=== PATIENT | female | born 1945 | race Two or more races ===

== ENCOUNTER 2016-10-10 13:51 | Outpatient (CLI) | payer MEDICARE, MEDICAID ==
--- NOTE | 2016-10-10 15:02 | Diagnostic Imaging Report ---
Indications: Chest pain and shortness of breath Technique: Continuous helical CT imaging of the thorax was performed with automatic exposure control on a Siemens sensation [address] scanner. Axial, coronal, sagittal images were reconstructed at 5 mm slice thickness. Thin section high-resolution axial images were reconstructed at 1 mm slice thickness and 10 mm interval. CTDI volume(s): 25 mGy Total DLP: 826 mGy-cm Findings: Comparison: None Lungs are normally, symmetrically inflated. Small irregular pleural-based linear densities are present in the dependent portions of both lung bases. 2 mm noncalcified nodule anterior segment left upper lobe (5-19). 2 mm noncalcified nodule anterior segment left upper lobe (5-22). 3 mm noncalcified nodule lateral segment right middle lobe and 3 mm noncalcified nodule anterior basal segment right lower lobe (5-31). 3 mm noncalcified nodule lateral basal segment left lower lobe (5-39). No significant emphysematous change, interlobular septal thickening, groundglass opacity, partly wall thickening, traction bronchiectasis, or honeycombing. No significant pleural abnormality. Heart enlarged. No pericardial abnormality. Scattered arterial mural calcifications including coronary artery involvement. Vascular patency indeterminate. Thoracic aorta nonaneurysmal. No enlarged mediastinal or hilar lymph nodes detected. Chest wall soft tissues nonfocal. Multiple small calcified nodules in liver and spleen. 3 cm circumscribed low-attenuation focus in hepatic segment 4A. Disc marginal osteophytes lower thoracic spine. IMPRESSION: No evidence of significant pulmonary interstitial disease Minimal pulmonary bibasal subsegmental atelectasis Bilateral small noncalcified lung nodules--favor granulomatous disease over metastases, latter not entirely excludable. The patient is at high risk for neoplasm, recommend followup CT scan in 12 months; no followup recommended if low risk. 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
== END 2016-10-10 14:21 | disposition home or self-care (01) ==
LOC: CAT 13:51
DX: R07.9 Chest pain, unspecified (principal); I51.7 Cardiomegaly; J98.11 Atelectasis; R91.1 Solitary pulmonary nodule; I70.90 Unspecified atherosclerosis; D71 Functional disorders of polymorphonuclear neutrophils; K76.89 Other specified diseases of liver; M47.9 Spondylosis, unspecified
CPT/HCPCS: 71250

== ENCOUNTER 2016-10-28 12:23 | Outpatient (CLI) | payer MEDICARE, MEDICAID ==
--- NOTE | 2016-10-28 14:14 | Diagnostic Imaging Report ---
Clinical Indication: COUGH left-sided chest pain x3 weeks Technique: Spiral acquisitions obtained through the chest. No IV contrast utilized, reason not stated. Multiplanar reconstructions generated. Total dose length product 898 mGycm. CTDIvol(s) 23 mGy. 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 The bones are otherwise unremarkable 2 nodules are seen the periphery of the right middle lobe, image 30 of series 4, the more ill-defined posterior nodule measuring approximately 5 mm in diameter, more anterior measuring approximately 3 mm diameter. These are unchanged. Some medial scarring in the left lung base is unchanged. A subpleural nodule in the left upper lobe periphery, image 22 series 4, remains unchanged as there is a similar nodule at the left posterior lateral lung base image 36 series 4. These measure about 3 mm in diameter. No infiltrates, effusions, congestion. No new nodules. No mediastinal or hilar mass or adenopathy. The heart size is normal. No pericardial effusion. No axillary or chest wall mass or adenopathy. Unremarkable esophagus. Again are multiple calcifications within the liver. Again demonstrated is a right lobe hepatic cyst which measures 2.7 cm in diameter. Again demonstrated is a splenic capsular calcification. Impression: No acute abnormality Multiple small nodules bilaterally, unchanged. If patient is at low risk for lung carcinoma, no further followup necessary. If patient is at high risk, one year followup CT should be considered to ensure stability over 2 year. 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
== END 2016-10-28 14:23 | disposition home or self-care (01) ==
LOC: CAT 12:23
DX: R05 Cough (principal); R07.9 Chest pain, unspecified; R91.8 Other nonspecific abnormal finding of lung field; J98.4 Other disorders of lung; D71 Functional disorders of polymorphonuclear neutrophils
CPT/HCPCS: 71250